=== PATIENT | female | born 1995 | race Caucasian/White ===

== ENCOUNTER 2018-11-25 08:55 | Emergency (ER) | payer OTHER ==
[~2018-11-25] VITALS: Ht 175.3 cm; Wt 121.1 kg
[2018-11-25] MEDS ORDERED: IV NORMAL SALINE 1000ML BAG 1,000 ML IV ONE (09:30)
[2018-11-25 10:11] LABS: INFLUENZA A PATIENT NEGATIVE (NEGATIVE); INFLUENZA B PATIENT NEGATIVE (NEGATIVE)
--- NOTE | 2018-11-25 10:19 | PHYS DOC ---
Past Medical History Past Medical History: Anxiety, Depression Past Surgical History: Other Additional Past Surgical Histo: WISDOM TEETH REMOVED Alcohol Use: Occasionally Drug Use: None Adult General Chief Complaint Chief Complaint: COUGH HPI HPI 23-year-old female presenting the emergency department today with cough fevers or throat and body aches. She reports yellow thick sputum production. This all started on Wednesday. She denies abdominal pain or vomiting. Location lungs. Review of systems is negative for neck stiffness headache vision changes numbness weakness tingling. Negative for vomiting. All other review of systems is negative unless otherwise noted in history of present illness. ED course: 23-year-old female presenting with cough congestion and body aches. On arrival she is mildly tachycardic and mildly tachypneic. She is afebrile here in our examination. On exam lungs are clear bilaterally and she is well- appearing with moist because membranes. X-ray obtained along with blood work. IV fluids given. Influenza testing sent. Influenza is negative. Chest x-ray showed possible infiltrate. On reexamination the patient's lung continued to be clear. She continues to be well-appearing. We will give the patient oral doxycycline to follow-up with her doctor in 2 days for pneumonia.The patient has been examined and was not found to have an emergency medical condition. The patient was then discharged home in stable condition to follow up with their primary care physician over the next 1-2 days. They were to return if their symptoms worsened or if they were concerned for any reason. They were also instructed to return to the emergency department if they were unable to get the recommended and appropriate follow-up. [id number] discharge instructions and return precautions were given. Patient's questions were answered to their satisfaction. Patient is comfortable with plan. Review of Systems Review of Systems SEE ABOVE. Current Medications Current Medications Current Medications Medications (Trade) Dose Ordered Sig/Lakshmi Start Time Stop Time Status Last Admin Dose Admin Sodium Chloride 1,000 ml @ 1,000 mls/hr 1X ONCE 11/25/18 09:30 11/25/18 10:29 DC 11/25/18 09:56 1,000 MLS/HR Allergies Allergies Allergies Coded Allergies Type Severity Reaction Last Updated Verified No Known Drug Allergies 11/25/18 No Physical Exam Physical Exam SEE ABOVE Constitutional: Well developed, well nourished, no acute distress, non-toxic appearance. [] HENT: Normocephalic, atraumatic, bilateral external ears normal, oropharynx moist, no oral exudates, nose normal. [] Eyes: PERRLA, EOMI, conjunctiva normal, no discharge. [] Neck: Normal range of motion, no tenderness, supple, no stridor. [] Cardiovascular:Heart rate regular rhythm, no murmur [] Lungs & Thorax: Bilateral breath sounds clear to auscultation [] Abdomen: Bowel sounds normal, soft, no tenderness, no masses, no pulsatile masses. [] Skin: Warm, dry, no erythema, no rash. [] Back: No tenderness, no CVA tenderness. [] Extremities: No tenderness, no cyanosis, no clubbing, ROM intact, no edema. [] Neurologic: Alert and oriented X 3, normal motor function, normal sensory function, no focal deficits noted. [] Psychologic: Affect normal, judgement normal, mood normal. [] Current Patient Data Vital Signs Vital Signs Date Time Temp Pulse Resp B/P (MAP) Pulse Ox O2 Delivery O2 Flow Rate FiO2 11/25/18 09:17 99.1 115 22 162/91 (114) 99 Room Air 99.1 Lab Values Laboratory Tests Test 11/25/18 09:27 11/25/18 09:58 11/25/18 11:30 Influenza Type A Antigen Negative (NEGATIVE) Influenza Type B Antigen Negative (NEGATIVE) White Blood Count 6.4 x10^3/uL (4.0-11.0) Red Blood Count 4.48 x10^6/uL (3.50-5.40) Hemoglobin 15.0 g/dL (12.0-15.5) Hematocrit 44.9 % (36.0-47.0) Mean Corpuscular Volume 100 fL (79-100) Mean Corpuscular Hemoglobin 34 pg (25-35) Mean Corpuscular Hemoglobin Concent 34 g/dL (31-37) Red Cell Distribution Width 13.0 % (11.5-14.5) Platelet Count 302 x10^3/uL (140-400) Neutrophils (%) (Auto) 65 % (31-73) Lymphocytes (%) (Auto) 26 % (24-48) Monocytes (%) (Auto) 8 % (0-9) Eosinophils (%) (Auto) 1 % (0-3) Basophils (%) (Auto) 0 % (0-3) Neutrophils # (Auto) 4.2 x10^3uL (1.8-7.7) Lymphocytes # (Auto) 1.7 x10^3/uL (1.0-4.8) Monocytes # (Auto) 0.5 x10^3/uL (0.0-1.1) Eosinophils # (Auto) 0.0 x10^3/uL (0.0-0.7) Basophils # (Auto) 0.0 x10^3/uL (0.0-0.2) Sodium Level 140 mmol/L (136-145) Potassium Level 4.1 mmol/L (3.5-5.1) Chloride Level 101 mmol/L (98-107) Carbon Dioxide Level 28 mmol/L (21-32) Anion Gap 11 (6-14) Blood Urea Nitrogen 9 mg/dL (7-20) Creatinine 0.9 mg/dL (0.6-1.0) Estimated GFR (Cockcroft-Gault) 79.0 BUN/Creatinine Ratio 10 (6-20) Glucose Level 88 mg/dL (70-99) Calcium Level 9.1 mg/dL (8.5-10.1) Total Bilirubin 0.2 mg/dL (0.2-1.0) Aspartate Amino Transferase (AST) 20 U/L (15-37) Alanine Aminotransferase (ALT) 28 U/L (14-59) Alkaline Phosphatase 77 U/L (46-116) Total Protein 7.9 g/dL (6.4-8.2) Albumin 4.0 g/dL (3.4-5.0) Albumin/Globulin Ratio 1.0 (1.0-1.7) Serum Test, Qualitative Negative (NEG) Urine Collection Type Unknown Urine Color Yellow Urine Clarity Clear Urine pH 7.0 Urine Specific [place] 1.010 Urine Protein Negative mg/dL (NEG-TRACE) Urine Glucose (UA) Negative mg/dL (NEG) Urine Ketones (Stick) Negative mg/dL (NEG) Urine Blood Negative (NEG) Urine Nitrite Negative (NEG) Urine Bilirubin Negative (NEG) Urine Urobilinogen Dipstick 0.2 mg/dL (0.2 mg/dL) Urine Leukocyte Esterase Small (NEG) Urine RBC 0 /HPF (0-2) Urine WBC 1-4 /HPF (0-4) Urine Squamous Epithelial Cells Few /LPF Urine Bacteria 0 /HPF (0-FEW) Laboratory Tests 11/25/18 09:58 Laboratory Tests 11/25/18 09:58 EKG EKG [] Radiology/Procedures Radiology/Procedures [] Course & Med Decision Making Course & Med Decision Making Pertinent Labs and Imaging studies reviewed. (See chart for details) [] Dragon Disclaimer Dragon Disclaimer This electronic medical record was generated, in whole or in part, using a voice recognition dictation system. Departure Departure Impression: Primary Impression: Cough Additional Impression: Pneumonia Referrals: ALEC BRANDT MD Patient Instructions: Cough, Adult Additional Instructions: Thank you for allowing us to participate in your care today. Return to the emergency department you have any new or worsening symptoms, or if you are concerned for any reason. Return to emergency department if you have any new or concerning symptoms including but not limited to fever, chills, nausea, vomiting, intractable pain, any new rashes, chest pain, shortness of air , uncontrolled bleeding, difficulty breathing, and/or vision loss. Follow up with your primary care physician within 1-2 days. Call your Primary Doctor tomorrow and inform them of your visit today. If you do not have a primary care provider we are happy to provide you with a list of our primary care providers contact information. This condition should be evaluated by your primary care physician and any recommended consulting services for continued management within 2 days after discharge. If at any time, you are having difficulty getting into your primary care doctor or a specialist, return to the emergency department. Scripts Doxycycline Hyclate (DOXYCYCLINE HYCLATE) 100 Mg Capsule 1 CAP PO BID, #14 CAP Prov: ALEJANDRA BYRD MD 11/25/18 Problem Qualifiers ALEJANDRA BYRD MD Nov 25, 2018 10:18
[2018-11-25 10:23] LABS: CALCIUM 9.1 mg/dL (8.5-10.1); CREATININE 0.9 mg/dL (0.6-1.0); POTASSIUM 4.1 mmol/L (3.5-5.1)
[2018-11-25 10:29] LABS: BASO % 0 % (0-3); EOS % 1 % (0-3); HEMATOCRIT 44.9 % (36.0-47.0); LYMPH # 1.7 x10^3/uL (1.0-4.8); LYMPH % 26 % (24-48); MEAN CORPUSCULAR HEMOGLOBIN 34 pg (25-35); MEAN CORPUSCULAR HGB CONC 34 g/dL (31-37); MEAN CORPUSCULAR VOLUME 100 fL (79-100); MONO # 0.5 x10^3/uL (0.0-1.1); MONO % 8 % (0-9); NEUT # 4.2 x10^3uL (1.8-7.7); NEUT % 65 % (31-73); PLATELET COUNT 302 x10^3/uL (140-400); PREG TEST PT QUAL NEGATIVE (NEG); RED BLOOD COUNT 4.48 x10^6/uL (3.50-5.40); TOTAL BILIRUBIN 0.2 mg/dL (0.2-1.0); TOTAL PROTEIN 7.9 g/dL (6.4-8.2); WHITE BLOOD COUNT 6.4 x10^3/uL (4.0-11.0)
--- NOTE | 2018-11-25 10:57 | RAD ---
Chest, PA and Lateral: Technique: PA and lateral views of the chest were obtained. History: Cough, congestion. Comparison: None. Findings: The heart and pulmonary vasculature appear within normal limits. Minimal bibasilar lung atelectasis or infiltrates... The pleural margins are clear. Impression: Minimal bibasilar lung atelectasis or infiltrates. Electronically signed by: Robert Rojas MD (11/25/2018 10:54 AM) [place] [id number]
[2018-11-25 11:37] LABS: BILIRUBIN,URINE NEGATIVE (NEG); CLARITY,URINE CLEAR; COLOR,URINE YELLOW; NITRITE,URINE NEGATIVE (NEG); PROTEIN,URINE NEGATIVE (NEG-TRACE); UROBILINOGEN,URINE 0.2 mg/dL (0.2 mg/dL)
[2018-11-25 11:58] LABS: BACTERIA,URINE 0 /HPF (0-FEW); RBC,URINE 0 /HPF (0-2); SQUAMOUS EPITHELIAL CELL,UR FEW /LPF
[2018-11-25] MEDS ORDERED: DOXY100C2 PO (12:13)
[2018-11-25 12:28] VITALS: BP 102/56
== END 2018-11-25 12:45 | disposition home or self-care (01) ==
LOC: ER 10:35
DX: J18.9 Pneumonia, unspecified organism (principal); R00.0 Tachycardia, unspecified; F32.9 Major depressive disorder, single episode, unspecified; F41.9 Anxiety disorder, unspecified
CPT/HCPCS: 36415; 71046; 80053; 81001; 84703; 85025; 87086; 87804; 99284; J7030

== ENCOUNTER → 2019-07-26 | Outpatient (CLI) | payer OTHER ==
[~2019-07-26] MED LIST: DOXY100C2 PO
[2019-07-26 11:16] LABS: BASO % 0 % (0-3); BILIRUBIN,URINE NEGATIVE (NEG); CLARITY,URINE CLEAR; COLOR,URINE YELLOW; EOS % 1 % (0-3); HEMATOCRIT 41.3 % (36.0-47.0); HEMOGLOBIN 14.4 g/dL (12.0-15.5); LYMPH # 2.5 x10^3/uL (1.0-4.8); LYMPH % 35 % (24-48); MEAN CORPUSCULAR HEMOGLOBIN 34 pg (25-35); MEAN CORPUSCULAR HGB CONC 35 g/dL (31-37); MEAN CORPUSCULAR VOLUME 98 fL (79-100); MONO # 0.5 x10^3/uL (0.0-1.1); MONO % 7 % (0-9); NEUT # 4.1 x10^3/uL (1.8-7.7); NEUT % 57 % (31-73); NITRITE,URINE NEGATIVE (NEG); PH,URINE 7.5; PLATELET COUNT 382 x10^3/uL (140-400); PROTEIN,URINE NEGATIVE (NEG-TRACE); RED BLOOD COUNT 4.21 x10^6/uL (3.50-5.40); RED CELL DISTRIBUTION WIDTH 12.2 % (11.5-14.5); WHITE BLOOD COUNT 7.1 x10^3/uL (4.0-11.0)
[2019-07-26 11:29] LABS: ALBUMIN/GLOBULIN RATIO 1.1 (1.0-1.7); CALCIUM 9.5 mg/dL (8.5-10.1); CREATININE 0.9 mg/dL (0.6-1.0); GFR 78.3; POTASSIUM 4.2 mmol/L (3.5-5.1); TOTAL BILIRUBIN 0.2 mg/dL (0.2-1.0); TOTAL PROTEIN 7.6 g/dL (6.4-8.2)
[2019-07-26 11:30] LABS: BACTERIA,URINE 0 /HPF (0-FEW); RBC,URINE RARE /HPF (0-2); SQUAMOUS EPITHELIAL CELL,UR OCC /LPF; WBC,URINE RARE /HPF (0-4)
== END | disposition home or self-care (01) ==
LOC: LAB 10:47
PROVIDERS: ATTEND Family Medicine
DX: R10.13 Epigastric pain (principal); R10.2 Pelvic and perineal pain; R53.83 Other fatigue; R30.0 Dysuria
CPT/HCPCS: 36415; 80053; 81001; 83690; 84443; 85025

== ENCOUNTER → 2019-08-02 | Outpatient (CLI) | payer OTHER ==
[~2019-08-02] MED LIST changes: +IOHEXOL 240 MG/ML 50ML VIAL. PO ONE; +IOHEXOL 300 MG/ML 100ML VIAL. IV ONE
--- NOTE | 2019-08-02 10:46 | RAD ---
CT of the abdomen and pelvis with contrast 08/02/2019 10:40 AM Indication: Epigastric pain. Pelvic pain. Comparison study: None available Technique: Multidetector CT imaging of the abdomen and pelvis was performed following the administration of IV contrast. Findings: The partially visualized lung bases demonstrate no acute abnormality. The liver, gallbladder, spleen, bilateral adrenal glands, and pancreas, are grossly unremarkable. There is a tiny hypodense lesion noted superior left kidney, likely a small cyst but too small to adequately characterize by CT. Kidneys are otherwise unremarkable. There is no bowel obstruction. No evidence of acute inflammatory change involving visualized bowel is identified. Appendix is visualized and unremarkable in appearance. Bladder is grossly unremarkable. No free fluid or free air is seen in the abdomen or pelvis. No acute osseous changes are identified. Impression: No evidence of acute intra-abdominal abnormality is identified. CT DOSING PQRS STATEMENT: One or more of the following individualized dose reduction techniques were utilized for this examination: 1. Automated exposure control 2. Adjustment of the mA and/or kV according to patient size 3. Use of iterative reconstruction technique Electronically signed by: Bert Humphrey MD (08/02/2019 10:43 AM) [id number]
== END | disposition home or self-care (01) ==
LOC: CT 09:16
PROVIDERS: ATTEND Family Medicine
DX: N28.89 Other specified disorders of kidney and ureter (principal)
CPT/HCPCS: 74177; Q9966; Q9967

== ENCOUNTER → 2019-09-04 | Outpatient (CLI) | payer OTHER ==
[~2019-09-04] VITALS: Ht 177.8 cm; Wt 120.2 kg
[~2019-09-04] MED LIST changes: -IOHEXOL 240 MG/ML 50ML VIAL. PO ONE; -IOHEXOL 300 MG/ML 100ML VIAL. IV ONE; +SINCALIDE 2.4 MCG in IV NORMAL SALINE 50ML 30 ML IV ONE
--- NOTE | 2019-09-04 11:35 | RAD ---
STUDY: Realtime grayscale and color Doppler ultrasonography of the right upper quadrant INDICATION: Right upper quadrant pain. Nausea. COMPARISON: Correlation is made to the CT abdomen/pelvis from 08/02/2019. Findings: Single mobile gallstone identified. Normal gallbladder wall thickness. No sonographic Beckford's sign was observed by the marine electronics technician. Normal caliber of the common bile duct at 0.3 cm. Normal hepatic echotexture and size. The main portal vein is patent with hepatopedal flow. The partially visualized IVC is unremarkable. Normal size of the right kidney 11 cm. Maintained cortical thickness and echogenicity. No hydronephrosis. The visualized pancreas is unremarkable. Impression: 1. Single mobile gallstone without sonographic findings of acute cholecystitis. 2. Unremarkable liver, right kidney and visualized pancreas. Electronically signed by: FATOU DAVIS MD (09/04/2019 11:33 AM) [facility]
--- NOTE | 2019-09-04 14:13 | RAD ---
EXAM: Nuclear hepatobiliary scan. HISTORY: Pain. TECHNIQUE: Following intravenous administration of 5.0 mCi Tc 99m Choletec, anterior images of the abdomen were obtained at five minute intervals through one hour. Subsequently, 2.4 mcg CCK was administered and additional images to assess gallbladder ejection fraction were obtained. FINDINGS: There is prompt radiotracer uptake by the liver. No focal defect is seen. There is normal excretion into the biliary tree. The gallbladder is visualized within 35 minutes and there is free flow into the duodenum. The gallbladder ejection fraction is 2 percent. IMPRESSION: Severely decreased gallbladder ejection fraction of 2 percent. Electronically signed by: Alem Harper MD (09/04/2019 2:10 PM) [id number]
== END | disposition home or self-care (01) ==
LOC: US 09:55
PROVIDERS: ATTEND Internal Medicine Gastroenterology
DX: K80.20 Calculus of gallbladder without cholecystitis without obstruction (principal)
CPT/HCPCS: 76705; 78227; A9537; J2805

== ENCOUNTER → 2019-09-22 | Day surgery (SDC) | payer OTHER ==
[~2019-09-22] MED LIST changes: +BUPR150T15 PO; +IV RINGERS,LACTATED 1000ML 1,000 ML IV SCH; +LIDOCAINE 2% PF 5 ML VIAL. ONE; +PROPOFOL 20 ML IV ONE; +SERT100T PO; -SINCALIDE 2.4 MCG in IV NORMAL SALINE 50ML 30 ML IV ONE; +TOPI50TA38 PO; +TRAZ-118 PO
[2019-09-22 08:09] VITALS: BP 127/70
== END ==
LOC: ENDOS 06:34
PROVIDERS: ATTEND Internal Medicine Gastroenterology
DX: R10.13 Epigastric pain (principal); K29.50 Unspecified chronic gastritis without bleeding; F41.9 Anxiety disorder, unspecified; F32.9 Major depressive disorder, single episode, unspecified; K58.9 Irritable bowel syndrome, unspecified; F15.90 Other stimulant use, unspecified, uncomplicated; Z87.891 Personal history of nicotine dependence; Z72.89 Other problems related to lifestyle
CPT/HCPCS: 43235; 81025; J2001; J2704

== ENCOUNTER → 2019-09-29 | Outpatient (CLI) | payer OTHER ==
[2019-09-22 08:09] VITALS: BP 127/70
[~2019-09-29] MED LIST changes: -IV RINGERS,LACTATED 1000ML 1,000 ML IV SCH; -LIDOCAINE 2% PF 5 ML VIAL. ONE; -PROPOFOL 20 ML IV ONE
[2019-10-03 04:08] LABS: GC PROBE Negative (Negative)
== END | disposition home or self-care (01) ==
LOC: LAB 15:05
PROVIDERS: ATTEND Family Medicine
DX: Z01.419 Encounter for gynecological examination (general) (routine) without abnormal findings (principal); Z11.3 Encounter for screening for infections with a predominantly sexual mode of transmission
CPT/HCPCS: 87480; 87491; 87510; 87591; 87660

== ENCOUNTER → 2019-11-07 | Outpatient (CLI) | payer OTHER ==
[2019-09-22 08:09] VITALS: BP 127/70
[2019-11-07 10:58] LABS: BASO # 0.1 x10^3/uL (0.0-0.2); BASO % 1 % (0-3); EOS % 0 % (0-3); HEMATOCRIT 41.7 % (36.0-47.0); HEMOGLOBIN 14.1 g/dL (12.0-15.5); LYMPH # 2.6 x10^3/uL (1.0-4.8); LYMPH % 29 % (24-48); MEAN CORPUSCULAR HEMOGLOBIN 34 pg (25-35); MEAN CORPUSCULAR HGB CONC 34 g/dL (31-37); MEAN CORPUSCULAR VOLUME 99 fL (79-100); MONO # 0.6 x10^3/uL (0.0-1.1); MONO % 7 % (0-9); NEUT # 5.7 x10^3/uL (1.8-7.7); NEUT % 64 % (31-73); PLATELET COUNT 404 x10^3/uL (140-400); RED CELL DISTRIBUTION WIDTH 12.9 % (11.5-14.5)
[2019-11-07 11:16] LABS: CALCIUM 9.1 mg/dL (8.5-10.1); GFR 69.3; POTASSIUM 3.8 mmol/L (3.5-5.1)
== END | disposition home or self-care (01) ==
LOC: LAB 10:35
PROVIDERS: ATTEND Family Medicine
DX: R53.83 Other fatigue (principal); M79.10 Myalgia, unspecified site
CPT/HCPCS: 36415; 80048; 82550; 84443; 85025; 85651

== ENCOUNTER → 2019-11-17 | Outpatient (CLI) | payer OTHER ==
[2019-09-22 08:09] VITALS: BP 127/70
[~2019-11-17] MED LIST changes: +BUPR300T3 PO; +OMEP20TA63 PO; +OXYC-325 PO; +SERT50TA PO
[2019-11-17 11:19] LABS: ALBUMIN 3.7 g/dL (3.4-5.0); TOTAL BILIRUBIN 0.3 mg/dL (0.2-1.0)
== END | disposition home or self-care (01) ==
LOC: SURGPAT 09:54
PROVIDERS: ATTEND Surgery
DX: Z01.818 Encounter for other preprocedural examination (principal); K80.20 Calculus of gallbladder without cholecystitis without obstruction
CPT/HCPCS: 36415; 82040; 82247

== ENCOUNTER 2019-11-20 06:38 | Day surgery (SDC) | payer OTHER ==
[~2019-11-20] VITALS: Ht 171.4 cm; Wt 122.0 kg
[~2019-11-20 06:38] MED LIST changes: -OXYC-325 PO; +ceFAZolin SODIUM 3 GM in IV DEXTROSE 5% 100ML 100 ML IV PRN
[2019-11-20] MEDS ORDERED: PROCHLORPERAZINE 10 MG/2 ML VIAL. IV PRN (07:00)
[2019-11-20] MEDS ORDERED: MORPHINE SULFATE 2 MG/ML VIAL. IV PRN (07:00)
[2019-11-20] MEDS ORDERED: fentaNYL PF VIAL 100 MCG/2 ML VIAL IV PRN ×2 (07:00)
[2019-11-20] MEDS ORDERED: IV RINGERS,LACTATED 1000ML 1,000 ML IV SCH (07:00)
[2019-11-20] MEDS ORDERED: ONDANSETRON PF 4 MG/2 ML VIAL. IV PRN (07:00)
[2019-11-20] MEDS ORDERED: HYDROmorphone 2 MG/ML VIAL IV PRN (07:00)
[2019-11-20] MEDS ORDERED: LIDOCAINE 1% PF 2 ML VIAL. ID PRN (07:00)
[2019-11-20] MEDS ORDERED: GLUCAGON,HUMAN RECOMBINANT 1 MG/ML VIAL. ONE (07:29)
[2019-11-20] MEDS ORDERED: IOHEXOL 300 MG/ML 50 ML VIAL. ONE (07:29)
[2019-11-20] MEDS ORDERED: SURGICEL HEMOSTAT 4X8 EACH. ONE (07:29)
[2019-11-20] MEDS ORDERED: BUPIVACAINE-EPI 0.5%-1:200000 MPF 30 ML VIAL. ONE (07:29)
[2019-11-20] MEDS ORDERED: fentaNYL PF VIAL 250 MCG/5 ML VIAL ONE (07:32)
[2019-11-20] MEDS ORDERED: ROCURONIUM 50 MG/5 ML VIAL. ONE ×2 (07:32→08:25)
[2019-11-20] MEDS ORDERED: MIDAZOLAM HCL/PF 2 MG/2 ML VIAL. ONE (07:32)
[2019-11-20] MEDS ORDERED: LIDOCAINE 2% PF 5 ML VIAL. ONE (07:33)
[2019-11-20] MEDS ORDERED: ONDANSETRON PF 4 MG/2 ML VIAL. ONE (07:33)
[2019-11-20] MEDS ORDERED: DEXAMETHASONE SOD PHOS 4 MG/ML VIAL ONE (07:33)
[2019-11-20] MEDS ORDERED: PROPOFOL 20 ML IV ONE (07:33)
[2019-11-20] MEDS ORDERED: ROCURONIUM 100 MG/10 ML VIAL. ONE (08:26)
[2019-11-20] MEDS ORDERED: PHENYLEPHRINE in 0.9% NACL PF 1 MG/10 ML SYRINGE. IV ONE (09:04)
[2019-11-20] MEDS ORDERED: GLYCOPYRROLATE 1 MG/5 ML VIAL. ONE (09:04)
[2019-11-20] MEDS ORDERED: NEOSTIGMINE METHYLSULFATE 5 MG/5 ML SYRINGE. ONE (09:05)
[2019-11-20] MEDS ORDERED: SEVOFLURANE 61 TO 120 MINUTES. IH ONE (09:08)
[2019-11-20] MEDS ORDERED: OXYC-325 PO (09:27)
--- NOTE | 2019-11-20 09:30 | DISCH ---
DISCHARGE INSTRUCTIONS Condition on Discharge Condition on Discharge: Stable Activity After Discharge Activity Instructions for Disc: Activity as tolerated, Avoid exertion Driving Instructions after Dis: Do not drive (3-4 days) Diet after Discharge Diet after Discharge: Regular Wound Incision Care Wound/Incision Care: Ice to area for comfort Other wound/incision instructi: shasha shower Wednesday Follow-Up Follow up with: Jared 11/24 SPENCER LLOYD MD Nov 20, 2019 09:30
--- NOTE | 2019-11-20 09:40 | PDOC ---
BRIEF OPERATIVE NOTE Date: Nov 20, 2019 Pre-Op Diagnosis symptomatic cholelithiasis Post-Op Diagnosis same Procedure Performed l/s cholecystectomy Surgeon Jared Pan Cleaner Carlton SUNG Anesthesia Type: General Blood Loss 10cc IV Fluid 600cc Specimens Obtained GB Findings supple GB Complications none Operative Note Wk # [id number] SPENCER LLOYD MD Nov 20, 2019 09:40
[2019-11-20] MEDS ORDERED: oxyCODONE/APAP 5/325 1 TAB TABLET PO ONE (09:45)
[2019-11-20] MEDS ORDERED: PROCHLORPERAZINE 10 MG/2 ML VIAL. ONE (09:48)
--- NOTE | 2019-11-20 09:49 | OP ---
DATE OF SURGERY: 11/20/2019 PREOPERATIVE DIAGNOSIS: Symptomatic cholelithiasis. POSTOPERATIVE DIAGNOSIS: Symptomatic cholelithiasis. PROCEDURE: Laparoscopic cholecystectomy. SURGEON: Sylvain Lloyd MD BUILD MASTER: ANA LILIA Hyman ANESTHESIA: General endotracheal. ESTIMATED BLOOD LOSS: 10 mL. INTRAVENOUS FLUIDS: 600 mL. INDICATIONS: The patient is a 24-year-old with postprandial nausea and pain. Ultrasound shows a stone. She is brought for cholecystectomy. OPERATIVE FINDINGS: The gallbladder was supple with some omental adhesions along the inferior surface. Visual inspection of the remainder of the abdomen failed to reveal obvious abnormalities. DESCRIPTION OF PROCEDURE: The patient was brought to the operating suite, given a general endotracheal anesthetic, and the abdomen was prepped and draped in usual sterile fashion. A supraumbilical incision was infiltrated with local anesthetic, incised, and a 5 mm x 150 mm Visiport was used to gain access into the abdominal cavity, taking care to avoid injury to abdominal contents. Pneumoperitoneum established. Camera inserted and inspection carried out with results as noted above. With the table in reverse Trendelenburg rolled to the left, the epigastric, midclavicular, and lateral ports were placed under direct vision. The gallbladder was retracted superolaterally and omental adhesions taken down from the inferior surface to expose the cystic artery and cystic duct. The duct was clipped on the gallbladder side. However, attempted cholangiograms were unsuccessful due to the small caliber of the duct. As such, it was clipped x 3 and divided, taking care to avoid injury or compromise to the common duct. Cystic artery was clipped and divided and gallbladder freed from the bed with cautery dissection and placed in an EndoCatch bag. Table returned to level. A [address] drain brought through the epigastric port out the lateral port, sewn to the skin with a silk stitch and left in the subhepatic space for postoperative drainage. Good hemostasis was present in the fossa. One area of possible bile leak from a duct of L[place]chka was controlled with FloSeal. Gallbladder delivered through the epigastric incision which was then closed with 0 Vicryl suture and intra-abdominal pressure decreased to 6 cm of water. No bleeding from the epigastric closure, midclavicular port site after its removal, or the drain site. Abdomen decompressed, camera removed, and no bleeding seen. Skin incisions closed with subcuticular 4-0 Monocryl. Steri-Strips and sterile dressings applied. The patient was awakened from her anesthetic and taken to the recovery room in satisfactory condition. SYLVAIN LLOYD MD DR: MATILDE/emigdio JOB#: [id number] / [id number]
[2019-11-20 10:20] VITALS: BP 122/49
--- NOTE | 2019-11-21 17:06 | PATHOLOGY ---
[facility] Accession Number: [id number] . 01 Material submitted: . gallbladder - GALLBLADDER AND CONTENTS . 01 Clinical history: . cholelithiasis . 02 Diagnosis: Gallbladder, cholecystectomy: - Cholelithiasis. - Cholesterolosis. - Chronic cholecystitis. 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 . [facility] 11/21/2019) [facility] 11/21/2019 1536 Local . 02 Comment: There is no evidence of malignancy. . ([facility]mm; 11/21/2019) . 02 Electronically signed: . Jovanny Ortiz MD, Pathologist NPI- [id number] . 01 Gross description: . The specimen is received in formalin labeled "[place], [place], gallbladder and contents" and consists of an intact pink-yi to green smooth shiny gallbladder measuring 9.3 x 2.5 x 2.0 cm. The margin is inked black. Opening reveals a lumen filled with green bile and a single smooth oval green calculus measuring 1.8 cm. The mucosa is green with extensive yellow highlights and an average wall thickness of 0.1 cm. No masses are identified. Adjacent the gallbladder neck are 2 lymph node measuring 0.6 cm and 0.8 cm. Prefabricator sections are submitted in A1-A2 with the bisected lymph node (one inked blue) in A2. (SDY; 11/20/2019) SYU/SYU 11/20/2019 1724 Local . 02 Pathologist provided ICD-10: K80.10, K82.4 . 02 CPT . 149173 Specimen Comment: A courtesy copy of this report has been sent to [phone], [phone] Specimen Comment: [id number] Specimen Comment: Report sent to / DR DANG Performed at: [address] [facility], [place] [id number] MD David Wilde MD Phone: [phone] Performed at: [facility] [address] [place], [place] [id number] MD Jovanny Ortiz MD Phone: [phone]
== END 2019-11-20 11:20 | disposition home or self-care (01) ==
LOC: SURG 06:38
PROVIDERS: ATTEND Surgery
DX: K80.10 Calculus of gallbladder with chronic cholecystitis without obstruction (principal); G43.909 Migraine, unspecified, not intractable, without status migrainosus; F41.9 Anxiety disorder, unspecified; Z87.01 Personal history of pneumonia (recurrent); Z87.891 Personal history of nicotine dependence; Z98.890 Other specified postprocedural states
CPT/HCPCS: 47562; 81025; A7015; J0780; J1100; J2001; J2250; J2405; J2704; J2710; J3010; J3490; J7030; Q9967; J1610; J2370

== ENCOUNTER 2019-11-30 11:44 | Emergency (ER) | payer OTHER ==
[~2019-11-30] VITALS: Ht 177.8 cm; Wt 120.5 kg
[~2019-11-30 11:44] MED LIST changes: +OXYC-325 PO; -ceFAZolin SODIUM 3 GM in IV DEXTROSE 5% 100ML 100 ML IV PRN
[2019-11-30] MEDS ORDERED: IV NORMAL SALINE 1000ML BAG 1,000 ML IV ONE (12:15)
[2019-11-30] MEDS ORDERED: FAMOTIDINE 20 MG/2 ML VIAL IVP ONE (12:15)
[2019-11-30] MEDS ORDERED: DICYCLOMINE HCL 10 MG CAPSULE PO ONE (12:15)
[2019-11-30] MEDS ORDERED: ONDANSETRON PF 4 MG/2 ML VIAL. IVP ONE (12:15)
[2019-11-30] MEDS ORDERED: fentaNYL PF VIAL 100 MCG/2 ML VIAL IVP ONE (12:15)
[2019-11-30 12:30] LABS: CALCIUM 9.5 mg/dL (8.5-10.1); CREATININE 1.1 mg/dL (0.6-1.0); GFR 62.1; POTASSIUM 3.7 mmol/L (3.5-5.1)
[2019-11-30] MEDS ORDERED: IOHEXOL 300 MG/ML 100ML VIAL. IV ONE (12:30)
[2019-11-30 12:35] LABS: BASO % 0 % (0-3); EOS % 0 % (0-3); HEMATOCRIT 45.2 % (36.0-47.0); HEMOGLOBIN 15.7 g/dL (12.0-15.5); LYMPH # 0.7 x10^3/uL (1.0-4.8); LYMPH % 6 % (24-48); MEAN CORPUSCULAR HEMOGLOBIN 34 pg (25-35); MEAN CORPUSCULAR HGB CONC 35 g/dL (31-37); MEAN CORPUSCULAR VOLUME 98 fL (79-100); MONO # 0.4 x10^3/uL (0.0-1.1); MONO % 4 % (0-9); NEUT # 10.3 x10^3/uL (1.8-7.7); NEUT % 90 % (31-73); PLATELET COUNT 395 x10^3/uL (140-400); RED BLOOD COUNT 4.63 x10^6/uL (3.50-5.40); RED CELL DISTRIBUTION WIDTH 12.7 % (11.5-14.5); WHITE BLOOD COUNT 11.4 x10^3/uL (4.0-11.0)
[2019-11-30 12:36] LABS: ALBUMIN 4.3 g/dL (3.4-5.0); ALBUMIN/GLOBULIN RATIO 1.2 (1.0-1.7); TOTAL BILIRUBIN 0.7 mg/dL (0.2-1.0); TOTAL PROTEIN 7.9 g/dL (6.4-8.2)
[2019-11-30 12:40] LABS: BARBITURATES NEG (NEG); BENZODIAZEPINES NEG (NEG); CANNABINOIDS NEG (NEG); COCAINE NEG (NEG); METHADONE NEG (NEG); OPIATES NEG (NEG); PHENCYCLIDINE NEG (NEG)
[2019-11-30 12:42] LABS: AMPHETAMINE/METHAMPHETAMINE NEG (NEG)
[2019-11-30 12:50] LABS: BILIRUBIN,URINE NEGATIVE (NEG); CLARITY,URINE CLEAR; COLOR,URINE YELLOW; NITRITE,URINE NEGATIVE (NEG); PH,URINE 8.5; PROTEIN,URINE 30 mg/dL (NEG-TRACE)
[2019-11-30 12:59] LABS: U PREG PATIENT NEGATIVE (NEG)
[2019-11-30 13:18] LABS: SQUAMOUS EPITHELIAL CELL,UR MANY /LPF
[2019-11-30 13:19] LABS: BACTERIA,URINE FEW /HPF (0-FEW); RBC,URINE >40 /HPF (0-2)
--- NOTE | 2019-11-30 13:45 | RAD ---
CT ABD PELV W/ IV CONTRST ONLY Indication: Abdomen pain. Nausea and vomiting. Cholecystectomy November 20, 2019. Exposure: One or more of the following individualized dose reduction techniques were utilized for this examination: 1. Automated exposure control 2. Adjustment of the mA and/or kV according to patient size 3. Use of iterative reconstruction technique. Technique: Intravenous contrast was given. No oral contrast per request. COMPARISON: 08/02/2019. FINDINGS: Lung bases are clear. Liver unremarkable. Spleen unremarkable. Pancreas unremarkable. No evidence of adrenal mass. Kidneys demonstrate symmetric enhancement without focal mass or hydronephrosis. Surgical clips in the gallbladder fossa. There is a small hypodense collection within the gallbladder fossa, corresponding with the location of the previously seen gallbladder. This collection is fairly well-defined measuring about 4.2 x 1.2 x 1.3 cm. Only minimal stranding within the adjacent fat. There is not much of a perceptible wall. This measures about 25 Hounsfield units, barely greater than simple fluid. The aorta is nonaneurysmal. No significant lymph node enlargement. Stomach is not distended. No significant small bowel distention. Mild fluid density throughout the colon, could correlate with diarrhea. No evidence of colonic wall thickening or acute colitis. Small hiatal hernia. No significant ascites. No evidence of pneumoperitoneum. The urinary bladder is not distended. Low-density in the right adnexa measuring up to 2.5 cm bladder one or more of ovarian cysts or follicles. This appears similar to the prior study. Vertebral body height and alignment are intact. Mild marginal spurring. No evidence of acute fracture. No aggressive bone destruction. Mild stranding within the deep subcutaneous fat along the right upper abdomen at the level of the inferior liver. This was not present on the prior study, and presumably related to surgery. IMPRESSION: Small fluid collection within the gallbladder fossa. Given the recent nature of surgery, the lack of much inflammatory type change and the lack of a perceptible wall, this may just represent some residual postoperative hemorrhage or seroma. This does not measure hemorrhagic density. Correlate for clinical signs of infection, however. Depending on concern, short-term follow-up scan in 7-10 days could be of benefit for further evaluation. Electronically signed by: Mark Anthony Chow MD (11/30/2019 1:41 PM) [id number]
[2019-11-30 14:18] LABS: % ATYL 5 % (0-0); % BANDS 16 % (0-9); % EOS 1 % (0-5); % LYMPHS 5 % (24-48); % MONOS 2 % (0-10); % SEGS 71 % (35-66); PLT ESTIMATE ADEQUATE (ADEQUATE)
--- NOTE | 2019-11-30 14:52 | PHYS DOC ---
Past Medical History Past Medical History: Anxiety, Depression Past Surgical History: Cholecystectomy, Other Additional Past Surgical Histo: WISDOM TEETH REMOVED Smoking Status: Current Every Day Smoker Alcohol Use: Occasionally Drug Use: None Adult General Chief Complaint Chief Complaint: ABDOMINAL PAIN HPI HPI Patient is a 24 year old female patient who presents to the ED today complaining of nausea, vomiting, diarrhea and right upper quadrant abdominal pain that began this morning. Patient rates the pain as moderate. Denies any exacerbating or relieving factors symptoms. She reports she had a laparoscopic cholecystectomy on November [address] Coleman. She reports she was in contact with her sister's family a couple days ago and the on have vomiting and diarrhea. Review of Systems Review of Systems Constitutional: Denies fever or chills [] Eyes: Denies change in visual acuity, redness, or eye pain [] HENT: Denies nasal congestion or sore throat [] Respiratory: Denies cough or shortness of breath [] Cardiovascular: No additional information not addressed in HPI [] GI: Reports abdominal pain, nausea vomiting diarrhea, denies any hematemesis or melena : Denies dysuria or hematuria [] Musculoskeletal: Denies back pain or joint pain [] Integument: Denies rash or skin lesions [] Neurologic: Denies headache, focal weakness or sensory changes [] All other systems were reviewed and found to be within normal limits, except as documented in this note. Current Medications Current Medications Current Medications Medications (Trade) Dose Ordered Sig/Lakshmi Start Time Stop Time Status Last Admin Dose Admin Dicyclomine HCl (Bentyl) 20 mg 1X ONCE 11/30/19 12:15 11/30/19 12:16 DC 11/30/19 12:25 20 MG Famotidine (Pepcid Vial) 20 mg 1X ONCE 11/30/19 12:15 11/30/19 12:16 DC 11/30/19 12:24 20 MG Fentanyl Citrate (Fentanyl 2ml Vial) 50 mcg 1X ONCE 11/30/19 12:15 11/30/19 12:16 DC 11/30/19 12:25 50 MCG Iohexol (Omnipaque 300 Mg/ml) 75 ml 1X ONCE 11/30/19 12:30 11/30/19 12:31 DC 11/30/19 13:09 75 ML Ondansetron HCl (Zofran) 4 mg 1X ONCE 11/30/19 12:15 11/30/19 12:16 DC 11/30/19 12:24 4 MG Prochlorperazine Edisylate (Compazine) 10 mg 1X ONCE 11/30/19 15:15 11/30/19 15:16 DC 11/30/19 15:14 10 MG Sodium Chloride 1,000 ml @ 1,000 mls/hr 1X ONCE 11/30/19 12:15 11/30/19 13:14 DC 11/30/19 12:25 1,000 MLS/HR Allergies Allergies Allergies Coded Allergies Type Severity Reaction Last Updated Verified No Known Drug Allergies 11/20/19 No Physical Exam Physical Exam Constitutional: Well developed, well nourished, no acute distress, non-toxic appearance. [] HENT: Normocephalic, atraumatic, bilateral external ears normal, oropharynx moist, no oral exudates, nose normal. [] Eyes: PERRLA, EOMI, conjunctiva normal, no discharge. [] Neck: Normal range of motion, no tenderness, supple, no stridor. [] Cardiovascular:Heart rate regular rhythm, no murmur [] Lungs & Thorax: Bilateral breath sounds clear to auscultation [] Abdomen: Laparoscopic surgical incisions consistent with cholecystectomy noted on the abdomen, incisions are well approximated, no signs of infection. Bowel sounds normal, soft, slight tenderness of the right upper quadrant, no right lower quadrant tenderness, no masses, no pulsatile masses. [] Skin: Warm, dry, no erythema, no rash. [] Back: No tenderness, no CVA tenderness. [] Extremities: No tenderness, no cyanosis, no clubbing, ROM intact, no edema. [] Neurologic: Alert and oriented X 3, normal motor function, normal sensory func tion, no focal deficits noted. [] Psychologic: Affect normal, judgement normal, mood normal. [] Current Patient Data Vital Signs Vital Signs Date Time Temp Pulse Resp B/P (MAP) Pulse Ox O2 Delivery O2 Flow Rate FiO2 11/30/19 14:25 115 117/56 (76) 99 Room Air 11/30/19 12:00 98.1 14 98.1 Lab Values Laboratory Tests Test 11/30/19 12:05 11/30/19 12:21 White Blood Count 11.4 x10^3/uL (4.0-11.0) H Red Blood Count 4.63 x10^6/uL (3.50-5.40) Hemoglobin 15.7 g/dL (12.0-15.5) H Hematocrit 45.2 % (36.0-47.0) Mean Corpuscular Volume 98 fL (79-100) Mean Corpuscular Hemoglobin 34 pg (25-35) Mean Corpuscular Hemoglobin Concent 35 g/dL (31-37) Red Cell Distribution Width 12.7 % (11.5-14.5) Platelet Count 395 x10^3/uL (140-400) Neutrophils (%) (Auto) 90 % (31-73) H Lymphocytes (%) (Auto) 6 % (24-48) L Monocytes (%) (Auto) 4 % (0-9) Eosinophils (%) (Auto) 0 % (0-3) Basophils (%) (Auto) 0 % (0-3) Neutrophils # (Auto) 10.3 x10^3/uL (1.8-7.7) H Lymphocytes # (Auto) 0.7 x10^3/uL (1.0-4.8) L Monocytes # (Auto) 0.4 x10^3/uL (0.0-1.1) Eosinophils # (Auto) 0.0 x10^3/uL (0.0-0.7) Basophils # (Auto) 0.0 x10^3/uL (0.0-0.2) Segmented Neutrophils % 71 % (35-66) H Band Neutrophils % 16 % (0-9) H Lymphocytes % 5 % (24-48) L Atypical Lymphocytes % (Manual) 5 % (0-0) H Monocytes % 2 % (0-10) Eosinophils % 1 % (0-5) Platelet Estimate Adequate (ADEQUATE) Sodium Level 137 mmol/L (136-145) Potassium Level 3.7 mmol/L (3.5-5.1) Chloride Level 102 mmol/L (98-107) Carbon Dioxide Level 21 mmol/L (21-32) Anion Gap 14 (6-14) Blood Urea Nitrogen 12 mg/dL (7-20) Creatinine 1.1 mg/dL (0.6-1.0) H Estimated GFR (Cockcroft-Gault) 62.1 BUN/Creatinine Ratio 11 (6-20) Glucose Level 103 mg/dL (70-99) H Calcium Level 9.5 mg/dL (8.5-10.1) Total Bilirubin 0.7 mg/dL (0.2-1.0) Aspartate Amino Transferase (AST) 17 U/L (15-37) Alanine Aminotransferase (ALT) 38 U/L (14-59) Alkaline Phosphatase 84 U/L (46-116) Total Protein 7.9 g/dL (6.4-8.2) Albumin 4.3 g/dL (3.4-5.0) Albumin/Globulin Ratio 1.2 (1.0-1.7) Lipase 118 U/L (73-393) Ethyl Alcohol Level < 10 mg/dL (0-10) Urine Collection Type Void Urine Color Yellow Urine Clarity Clear Urine pH 8.5 Urine Specific [place] 1.020 Urine Protein 30 mg/dL (NEG-TRACE) Urine Glucose (UA) Negative mg/dL (NEG) Urine Ketones (Stick) Trace mg/dL (NEG) Urine Blood Large (NEG) Urine Nitrite Negative (NEG) Urine Bilirubin Negative (NEG) Urine Urobilinogen Dipstick 1.0 mg/dL (0.2 mg/dL) Urine Leukocyte Esterase Small (NEG) Urine RBC >40 /HPF (0-2) Urine WBC 1-4 /HPF (0-4) Urine Squamous Epithelial Cells Many /LPF Urine Bacteria Few /HPF (0-FEW) Urine Test Negative (NEG) Urine Opiates Screen Neg (NEG) Urine Methadone Screen Neg (NEG) Urine Barbiturates Neg (NEG) Urine Phencyclidine Screen Neg (NEG) Urine Amphetamine/Methamphetamine Neg (NEG) Urine Benzodiazepines Screen Neg (NEG) Urine Cocaine Screen Neg (NEG) Urine Cannabinoids Screen Neg (NEG) Urine Ethyl Alcohol Neg (NEG) Laboratory Tests 11/30/19 12:05 Laboratory Tests 11/30/19 12:05 EKG EKG [] Radiology/Procedures Radiology/Procedures []PROCEDURE: CT ABD PELV W/ IV CONTRST ONLY CT ABD PELV W/ IV CONTRST ONLY Indication: Abdomen pain. Nausea and vomiting. Cholecystectomy November 20, 2019. Exposure: One or more of the following individualized dose reduction techniques were utilized for this examination: 1. Automated exposure control 2. Adjustment of the mA and/or kV according to patient size 3. Use of iterative reconstruction technique. Technique: Intravenous contrast was given. No oral contrast per request. COMPARISON: 08/02/2019. FINDINGS: Lung bases are clear. Liver unremarkable. Spleen unremarkable. Pancreas unremarkable. No evidence of adrenal mass. Kidneys demonstrate symmetric enhancement without focal mass or hydronephrosis. Surgical clips in the gallbladder fossa. There is a small hypodense collection within the gallbladder fossa, corresponding with the location of the previously seen gallbladder. This collection is fairly well-defined measuring about 4.2 x 1.2 x 1.3 cm. Only minimal stranding within the adjacent fat. There is not much of a perceptible wall. This measures about 25 Hounsfield units, barely greater than simple fluid. The aorta is nonaneurysmal. No significant lymph node enlargement. Stomach is not distended. No significant small bowel distention. Mild fluid density throughout the colon, could correlate with diarrhea. No evidence of colonic wall thickening or acute colitis. Small hiatal hernia. No significant ascites. No evidence of pneumoperitoneum. The urinary bladder is not distended. Low-density in the right adnexa measuring up to 2.5 cm bladder one or more of ovarian cysts or follicles. This appears similar to the prior study. Vertebral body height and alignment are intact. Mild marginal spurring. No evidence of acute fracture. No aggressive bone destruction. Mild stranding within the deep subcutaneous fat along the right upper abdomen at the level of the inferior liver. This was not present on the prior study, and presumably related to surgery. IMPRESSION: Small fluid collection within the gallbladder fossa. Given the recent nature of surgery, the lack of much inflammatory type change and the lack of a perceptible wall, this may just represent some residual postoperative hemorrhage or seroma. This does not measure hemorrhagic density. Correlate for clinical signs of infection, however. Depending on concern, short-term follow-up scan in 7-10 days could be of benefit for further evaluation. Electronically signed by: Mark Anthony Chow MD (11/30/2019 1:41 PM) [facility] DICTATED and SIGNED BY: MARK ANTHONY CHOW MD DATE: 11/30/19 1345 Course & Med Decision Making Course & Med Decision Making Pertinent Labs and Imaging studies reviewed. (See chart for details) This is a 24-year-old female patient presenting to the ED today with nausea vomiting and diarrhea that began this morning. Off not patient had a laparoscopic cholecystectomy done on November 20, 2019. She has been in contact with several family members nausea vomiting and diarrhea symptoms. CBC with a WBC of 11.7 and a left shift. CMP with nothing really, urine analysis is contaminated with his, CellCept dependent. CT of the abdomen and pelvic was noted fo-Small fluid collection within the gallbladder fossa with no inflmamatory changes possibly post op seroma or hemorrhage. CT results were discussed with Dr. Coleman. Patient was discharged home with Zofran, dicyclomine. Instructed to maintain good hand hygiene and follow-up with her doctor next week Dragon Disclaimer Dragon Disclaimer This electronic medical record was generated, in whole or in part, using a voice recognition dictation system. Departure Departure Impression: Primary Impression: Nausea, vomiting and diarrhea Additional Impression: Abdominal pain Disposition: 01 HOME, SELF-CARE Condition: STABLE Referrals: KEEGAN DANG MD (PCP) Follow-up with your doctor next week Patient Instructions: Diarrhea, Vita-bp-Lreq, Nausea and Vomiting, [id number] Additional Instructions: Please take Zofran for nausea or vomiting. Push fluids. Follow up with your doctor next week Scripts Dicyclomine Hcl (DICYCLOMINE HCL) 20 Mg Tablet 1 TAB PO TID, #30 TAB 1 Refill Prov: DAYANA HERNANDEZ APRN 11/30/19 Ondansetron (ONDANSETRON ODT) 4 Mg Tab.rapdis 1 TAB PO PRN Q6-8HRS, #20 TAB Prov: DAYANA HERNANDEZ APRN 11/30/19 Problem Qualifiers Additional Impression: Abdominal pain Abdominal location: right upper quadrant Qualified Codes: R10.11 - Right upper quadrant pain DAYANA HERNANDEZ APRN Nov 30, 2019 14:52
[2019-11-30] MEDS ORDERED: PROCHLORPERAZINE 10 MG/2 ML VIAL. IV ONE (15:15)
[2019-11-30 15:55] VITALS: BP 120/54
[2019-11-30] MEDS ORDERED: DICY20TA3 PO (15:57)
[2019-11-30] MEDS ORDERED: ONDA4TAB12 PO (15:57)
== END 2019-11-30 16:03 | disposition home or self-care (01) ==
LOC: ER 11:44
DX: R11.2 Nausea with vomiting, unspecified (principal); R19.7 Diarrhea, unspecified; R10.11 Right upper quadrant pain; F41.9 Anxiety disorder, unspecified; F32.9 Major depressive disorder, single episode, unspecified; F17.200 Nicotine dependence, unspecified, uncomplicated; Z98.890 Other specified postprocedural states; Z79.899 Other long term (current) drug therapy
CPT/HCPCS: 36415; 74177; 80053; 80307; 81001; 81025; 83690; 85007; 85025; 96361; 96374; 96375; 99285; G0480; J0780; J2405; J3010; J3490; J7030; Q9967

== ENCOUNTER → 2020-12-24 | Outpatient (CLI) | payer OTHER ==
[~2020-12-24] MED LIST changes: +DICY20TA3 PO; +ONDA4TAB12 PO
[2020-12-24 11:01] LABS: BASO % 0 % (0-3); EOS % 0 % (0-3); HEMATOCRIT 41.1 % (36.0-47.0); HEMOGLOBIN 14.1 g/dL (12.0-15.5); LYMPH # 2.4 x10^3/uL (1.0-4.8); LYMPH % 32 % (24-48); MEAN CORPUSCULAR HEMOGLOBIN 34 pg (25-35); MEAN CORPUSCULAR HGB CONC 34 g/dL (31-37); MEAN CORPUSCULAR VOLUME 99 fL (79-100); MONO # 0.4 x10^3/uL (0.0-1.1); MONO % 6 % (0-9); NEUT # 4.7 x10^3/uL (1.8-7.7); NEUT % 62 % (31-73); PLATELET COUNT 414 x10^3/uL (140-400); RED BLOOD COUNT 4.17 x10^6/uL (3.50-5.40); WHITE BLOOD COUNT 7.7 x10^3/uL (4.0-11.0)
[2020-12-24 11:18] LABS: ALBUMIN 3.9 g/dL (3.4-5.0); ALBUMIN/GLOBULIN RATIO 1.1 (1.0-1.7); CALCIUM 8.9 mg/dL (8.5-10.1); CREATININE 1.1 mg/dL (0.6-1.0); GFR 61.6; POTASSIUM 4.1 mmol/L (3.5-5.1); TOTAL BILIRUBIN 0.4 mg/dL (0.2-1.0); TOTAL PROTEIN 7.6 g/dL (6.4-8.2)
[2020-12-26 14:12] LABS: H PYLORI IGA <9.0 units (0.0-8.9); H PYLORI IGM <9.0 units (0.0-8.9)
== END ==
LOC: LAB 10:34
PROVIDERS: ATTEND Family Medicine
DX: R10.13 Epigastric pain (principal)
CPT/HCPCS: 36415; 80053; 83690; 85025; 86677

== ENCOUNTER → 2021-07-31 | Outpatient (CLI) | payer OTHER ==
[~2021-07-31] MED LIST changes: -DOXY100C2 PO; +DOXY100C3 PO
[2021-07-31 13:06] LABS: HEMOGLOBIN 11.8 g/dL (12.0-15.5); RED BLOOD COUNT 3.44 x10^6/uL (3.50-5.40); RED CELL DISTRIBUTION WIDTH 13.1 % (11.5-14.5); WHITE BLOOD COUNT 9.9 x10^3/uL (4.0-11.0)
--- NOTE | 2021-07-31 16:57 | RAD ---
Clinical indications: Z 34.92 encounter for supervision of normal in the second trimester, unspecified . Findings: A single intrauterine fetus is seen in breech position. heart rate is 150 beats per m inute. BPD is 6.32 cm which equals 25 weeks 4 days. HC is 25.06 cm which equals 27 weeks 1 day. AC is 23.39 cm which equals 27 weeks 5 days. FL is 5.14 cm which equals 27 weeks 3 days. Average gestational age by ultrasound is 27 weeks 0 days +/- 14 days with an EDC of October 30, 2021. Estimated weight is 2 lbs and 6 oz. A four-chamber heart and three-vessel cord are identified. stomach and urinary bladder are identified. kidneys are unremarkable. The right renal pelvis measures 1.7 mm in caliber which is normal. Cord insertion site is unremarkable. The intracranial structures are not well visualized in this study. The spine is morphologically normal in appearance. Cisterna magna measurement is 5 mm. Four extremities are identified. LESLIE using the four quadrant method is 14.4 cm. Cervical length is 3.7 cm. A grade 0 fundal placenta is seen. No placenta previa and no placenta abruptio is identified. The maternal ovaries are not visualized. Impression: Single IUP in breech presentation with gestational age of 27 weeks. The BPD measurement lags behind the other growth parameters but is still within normal range limits o f 14 days. Intracranial structures are not well visualized in this study. Follow-up ultrasound study in 4 weeks is recommended. Electronically signed by: Tommy Goins MD (07/31/2021 4:54 PM) [id number]
== END ==
LOC: US 09:52
PROVIDERS: ATTEND Obstetrics & Gynecology
DX: Z34.92 Encounter for supervision of normal pregnancy, unspecified, second trimester (principal); Z3A.27 27 weeks gestation of pregnancy
CPT/HCPCS: 36415; 76805; 82950; 85027

== ENCOUNTER → 2021-09-02 | Outpatient (CLI) | payer OTHER ==
[~2021-09-02] MED LIST changes: +DICY20TA PO; -DICY20TA3 PO
== END ==
LOC: LAB 10:11
PROVIDERS: ATTEND Obstetrics & Gynecology
DX: O09.73 Supervision of high risk pregnancy due to social problems, third trimester (principal)
CPT/HCPCS: 36415; 82947; 82950

== ENCOUNTER → 2021-09-15 | Outpatient (CLI) | payer OTHER ==
--- NOTE | 2021-09-15 17:32 | RAD ---
EXAM: Ultrasound US OB LIMITED 09/15/2021 8:00 AM INDICATION: Follow-up OB ultrasound. COMPARISON: 07/31/2021 FINDINGS: There is a single living intrauterine gestation in vertex position. heart rate is 131 bpm. Plac enta is anterior. The following anatomy as visualized: Cerebellar, cisterna magna, falx, stomach, kidneys. biometry: Biparietal diameter: 8.12 cm, 32 weeks 4 days Head circumference: 31.19 cm, 34 weeks 6 days Abdominal circumference: 20.73 cm, 32 weeks 5 days Femur length: 6.43 cm, 33 weeks 1 day HC/AC ratio: 1.1 LESLIE: 12.0 cm Estimated gestational age by ultrasound: 33 weeks 2 days. Estimated weight: 2116 g, 55th percen tile. IMPRESSION: 1. Single living intrauterine with gestational age by ultrasound 33 weeks 2 days. Estimated weight 2116 g, 55th percentile. LESLIE 12.0 cm. 2. The intracranial structures are better visualized and grossly normal. Electronically signed by: Kaylene Sarkar MD (09/15/2021 5:29 PM) [id number]
== END ==
LOC: US 08:00
PROVIDERS: ATTEND Obstetrics & Gynecology
DX: O09.73 Supervision of high risk pregnancy due to social problems, third trimester (principal); O00.01 Abdominal pregnancy with intrauterine pregnancy; Z3A.33 33 weeks gestation of pregnancy
CPT/HCPCS: 76815

== ENCOUNTER → 2021-10-01 | Outpatient (CLI) | payer OTHER | LOC: LAB 09:22 | PROVIDERS: ATTEND Internal Medicine Pulmonary Disease | DX: R53.81 Other malaise (principal); R11.2 Nausea with vomiting, unspecified; Z20.822 Contact with and (suspected) exposure to COVID-19 | CPT/HCPCS: U0003; U0005 ==

== ENCOUNTER → 2021-10-20 | Outpatient (CLI) | payer OTHER ==
[2021-10-20 12:35] LABS: HEMATOCRIT 39.4 % (36.0-47.0); HEMOGLOBIN 13.4 g/dL (12.0-15.5); RED BLOOD COUNT 3.94 x10^6/uL (3.50-5.40); RED CELL DISTRIBUTION WIDTH 13.2 % (11.5-14.5); WHITE BLOOD COUNT 7.8 x10^3/uL (4.0-11.0)
[2021-10-20 12:40] LABS: CREATININE,RANDOM URINE 22.3 mg/dL (Not Establ.)
[2021-10-20 12:54] LABS: ALBUMIN 2.9 g/dL (3.4-5.0); ALBUMIN/GLOBULIN RATIO 0.8 (1.0-1.7); CALCIUM 8.3 mg/dL (8.5-10.1); CREATININE 0.6 mg/dL (0.6-1.0); GFR 122.8; POTASSIUM 4.7 mmol/L (3.5-5.1); TOTAL BILIRUBIN 0.2 mg/dL (0.2-1.0); TOTAL PROTEIN 6.7 g/dL (6.4-8.2)
== END ==
LOC: LAB 11:46
PROVIDERS: ATTEND Obstetrics & Gynecology
DX: Z34.93 Encounter for supervision of normal pregnancy, unspecified, third trimester (principal)
CPT/HCPCS: 36415; 80053; 82570; 83615; 84156; 85027; 87086

== ENCOUNTER 2021-11-03 05:46 | Inpatient (IN) | payer OTHER ==
[2021-11-03] VITALS (10 sets, daily range): BP systolic 109–146; BP diastolic 55–86
[~2021-11-03] VITALS: Ht 177.8 cm; Wt 131.0 kg
[2021-11-03] MEDS ORDERED: BUTORPHANOL 2 MG/ML VIAL. IVP PRN ×2 (06:00)
[2021-11-03] MEDS ORDERED: LIDOCAINE 1% PF 30 ML VIAL. INJ PRN (06:00)
[2021-11-03] MEDS ORDERED: TERBUTALINE 1 MG/ML VIAL. SQ PRN (06:00)
[2021-11-03] MEDS ORDERED: ACETAMINOPHEN 325 MG TABLET. PO PRN ×2 (06:00→16:30)
[2021-11-03] MEDS ORDERED: OXYTOCIN 30 UNIT/500 ML PREMIX 500 ML IV PRN ×3 (06:00→16:30)
[2021-11-03] MEDS ORDERED: PENICILLIN G K 5,000,000 UNIT in IV DEXTROSE 5% 100ML 100 ML IV ONE (06:00)
[2021-11-03] MEDS ORDERED: 0.9 % SODIUM CHLORIDE 10 ML DISP.SYRIN. IV PRN ×2 (06:00→16:30)
[2021-11-03] MEDS: IV RINGERS,LACTATED 1000ML 1,000 ML IV SCH ×3 (06:29→14:25)
[2021-11-03 06:42] LABS: BASO % 0 % (0-3); EOS % 0 % (0-3); HEMATOCRIT 40.3 % (36.0-47.0); HEMOGLOBIN 13.5 g/dL (12.0-15.5); LYMPH # 1.6 x10^3/uL (1.0-4.8); LYMPH % 15 % (24-48); MEAN CORPUSCULAR HEMOGLOBIN 34 pg (25-35); MEAN CORPUSCULAR HGB CONC 34 g/dL (31-37); MEAN CORPUSCULAR VOLUME 101 fL (79-100); MONO # 0.7 x10^3/uL (0.0-1.1); MONO % 6 % (0-9); NEUT # 8.7 x10^3/uL (1.8-7.7); NEUT % 78 % (31-73); PLATELET COUNT 379 x10^3/uL (140-400); RED BLOOD COUNT 4.02 x10^6/uL (3.50-5.40); RED CELL DISTRIBUTION WIDTH 13.5 % (11.5-14.5); WHITE BLOOD COUNT 11.1 x10^3/uL (4.0-11.0)
[2021-11-03 07:13] LABS: BILIRUBIN,URINE NEGATIVE (NEG); CLARITY,URINE CLEAR; COLOR,URINE YELLOW; NITRITE,URINE NEGATIVE (NEG); PROTEIN,URINE NEGATIVE (NEG-TRACE)
[2021-11-03 07:20] LABS: BACTERIA,URINE MODERATE /HPF (0-FEW); RBC,URINE OCC /HPF (0-2)
--- NOTE | 2021-11-03 08:17 | PDOC1 ---
TELEPHONE STATION INSTALLER H&P Date of Admission: Date of Admission: Nov 03, 2021 at 05:46 History of Present Illness: EDC: 11/08/21 LMP: 02/10/21 26y @ 39.2 by 9wk u/s presents for indxn of labor. The pts has been relatively uncomplicated. She has been on Zoloft and Wellbutrin throughout the . PMH: Depression/Anxiety, GERD, Headache-chronic PSH: wisdom teeth extraction, laparoscopic cholecystectomy 11/20/19 Meds: PNV, Zoloft, Wellbutrin, Omeprazole All: NKDA OBHx: TSVD x 1 SH: no tob, no EtOH FH: Migraines Medications: Meds: Current Medications Medications (Trade) Dose Ordered Sig/Lakshmi Route PRN Reason Start Time Stop Time Status Last Admin Dose Admin Ringer's Solution 1,000 ml @ 125 mls/hr Q8H IV 11/03/21 06:00 11/03/21 06:29 Penicillin G Potassium [id number] unit/Dextrose 100 ml @ 100 mls/hr 1X ONCE IV 11/03/21 06:00 11/03/21 06:59 DC 11/03/21 06:29 Allergies: Coded Allergies: No Known Drug Allergies (Unverified , 11/20/19) Physical Exam: Vital Signs: Vital Signs Date Time Temp Pulse Resp B/P (MAP) Pulse Ox O2 Delivery O2 Flow Rate FiO2 11/03/21 06:17 98.4 119 20 146/86 (106) 97 Room Air 98.4 PE: GENERAL: No apparent distress. Alert and oriented. HEENT: Head normocephalic, atraumatic. NECK: Supple LUNGS: Clear to auscultation. HEART: RRR, S1, S2 present, pulses intact ABDOMEN: Soft, positive bowel sounds. EXTREMITIES: No cyanosis or edema. NEUROLOGIC: Normal speech, normal tone PSYCHIATRIC: Normal affect, normal mood. SKIN: No ulceration. FHT: 120s +acels/no decels/mLTV [place]: 5-8 min SVE: 1-2/75/-3 Labs: Laboratory Tests Test 11/03/21 06:00 11/03/21 06:15 Urine Collection Type Unknown Urine Color Yellow Urine Clarity Clear Urine pH 7.0 (<5.0-8.0) Urine Specific [place] 1.015 (1.000-1.030) Urine Protein Negative mg/dL (NEG-TRACE) Urine Glucose (UA) Negative mg/dL (NEG) Urine Ketones (Stick) Negative mg/dL (NEG) Urine Blood Negative (NEG) Urine Nitrite Negative (NEG) Urine Bilirubin Negative (NEG) Urine Urobilinogen Dipstick 1.0 mg/dL (0.2 mg/dL) Urine Leukocyte Esterase Moderate (NEG) Urine RBC Occ /HPF (0-2) Urine WBC 11-20 /HPF (0-4) Urine Squamous Epithelial Cells Mod /LPF Urine Bacteria Moderate /HPF (0-FEW) Urine Mucus Slight /LPF White Blood Count 11.1 x10^3/uL (4.0-11.0) H Red Blood Count 4.02 x10^6/uL (3.50-5.40) Hemoglobin 13.5 g/dL (12.0-15.5) Hematocrit 40.3 % (36.0-47.0) Mean Corpuscular Volume 101 fL (79-100) H Mean Corpuscular Hemoglobin 34 pg (25-35) Mean Corpuscular Hemoglobin Concent 34 g/dL (31-37) Red Cell Distribution Width 13.5 % (11.5-14.5) Platelet Count 379 x10^3/uL (140-400) Neutrophils (%) (Auto) 78 % (31-73) H Lymphocytes (%) (Auto) 15 % (24-48) L Monocytes (%) (Auto) 6 % (0-9) Eosinophils (%) (Auto) 0 % (0-3) Basophils (%) (Auto) 0 % (0-3) Neutrophils # (Auto) 8.7 x10^3/uL (1.8-7.7) H Lymphocytes # (Auto) 1.6 x10^3/uL (1.0-4.8) Monocytes # (Auto) 0.7 x10^3/uL (0.0-1.1) Eosinophils # (Auto) 0.0 x10^3/uL (0.0-0.7) Basophils # (Auto) 0.0 x10^3/uL (0.0-0.2) Laboratory Tests 11/03/21 06:15 Laboratory Tests 11/03/21 06:15 Assessment & Plan: A/P 26y @ 39.2 by 9wk u/s 1.) PRIME 2.) Indxn on Pit 3.) GHTN - PIH labs nml, Pr/Cr 0.283, no s/s of preeclampsia 4.) TOB - [place] 5.) Depression/Anxiety - on Zoloft/Wellbutrin 6.) Elevated GTT - 1 of 4 values of 3hr GTT elevated 7.) TDAP given 08/28/21 8.) Fetus cat I FHT 9.) GBSuria on PCN 10.) Girl - Megan ALEC Payton MD Nov 03, 2021 08:17
[2021-11-03 08:41] LABS: CREATININE,RANDOM URINE 122.2 mg/dL (Not Establ.)
[2021-11-03 08:48] LABS: ALBUMIN/GLOBULIN RATIO 0.8 (1.0-1.7); CALCIUM 9.1 mg/dL (8.5-10.1); CREATININE 0.7 mg/dL (0.6-1.0); GFR 102.8; POTASSIUM 4.5 mmol/L (3.5-5.1); TOTAL BILIRUBIN 0.3 mg/dL (0.2-1.0); TOTAL PROTEIN 6.9 g/dL (6.4-8.2)
[2021-11-03] MEDS ORDERED: ONDANSETRON PF 4 MG/2 ML VIAL. IVP PRN (09:00)
[2021-11-03] MEDS: PENICILLIN G K 2,500,000 UNIT in IV DEXTROSE 5% 50 ML IV SCH ×2 (10:38→14:25)
[2021-11-03] MEDS ORDERED: fentaNYL PF VIAL 100 MCG/2 ML VIAL ONE (13:45)
[2021-11-03] MEDS ORDERED: BUPIVACAINE MPF 0.25% 30 ML VIAL. ONE (13:46)
[2021-11-03] MEDS ORDERED: L&D EPIDURAL SYRINGE 50 ML ONE (13:46)
[2021-11-03] MEDS ORDERED: L&D EPIDURAL 50 ML SYRINGE. ONE (14:00)
--- NOTE | 2021-11-03 16:19 | PDOC1 ---
[employer] TEACHER Delivery Summary: [employer] Delivery Summary: Called to attend delivery due to meconium stained fluid. GBS +, other labs WNL. Infant is a 39 2/7 week vaginal delivery after ROM x 4 hours. Infant delivered vaginally and received 45 seconds of delayed cord clamping. She was bulb suctioned on the perineum and then placed on the mother's abdomen. She had a good cry and good tone. She was dried and stimulated. She pinked up quickly without supplemental oxygen. Apgars 8/9. GENERAL: No apparent distress. Alert and oriented. HEENT: Head normocephalic, atraumatic. NECK: Supple LUNGS: Clear to auscultation. HEART: RRR, S1, S2 present, pulses intact ABDOMEN: Soft, positive bowel sounds. EXTREMITIES: Acrocyanosis. NEUROLOGIC: Normal tone for gestational age.. SKIN: No ulceration. EDIL La ELIZABETH A NP Nov 03, 2021 16:19
[2021-11-03] MEDS ORDERED: MAG HYDROX/ALUMINUM HYD/SIMETH 30 ML ORAL.SUSP PO PRN (16:30)
[2021-11-03] MEDS ORDERED: MMR per PROTOCOL. MC PRN (16:30)
[2021-11-03] MEDS ORDERED: ZOLPIDEM 5 MG TABLET. PO PRN (16:30)
[2021-11-03] MEDS ORDERED: SIMETHICONE 80 MG TAB.CHEW PO PRN (16:30)
[2021-11-03] MEDS ORDERED: MAGNESIUM HYDROXIDE 2,400 MG/30 ML ORAL.SUSP. PO PRN (16:30)
[2021-11-03] MEDS ORDERED: HYDROCORTISONE 1% TOPICAL OINTMENT 30GM TUBE. TP PRN (16:30)
[2021-11-03] MEDS ORDERED: PHENYLEPH/MINERAL OIL/PETROLAT RECTAL OINTMENT TUBE. RC PRN (16:30)
[2021-11-03] MEDS ORDERED: diphenhydrAMINE HCL 25 MG CAPSULE PO PRN (16:30)
[2021-11-03] MEDS ORDERED: TDaP (BOOSTRIX) per PROTOCOL. MC PRN (16:30)
[2021-11-03] MEDS ORDERED: BENZOCAINE 20% TOPICAL AEROSOL SPRAY 57GM CAN. TP PRN (16:30)
--- NOTE | 2021-11-03 16:32 | PDOC4 ---
VAGINAL DELIVERY DATE DATE: 11/03/21 TIME: 16:31 TIME Patient delivered a viable female over intact perineum at 1602. Wt 7 lb 15 oz. Apgars 8/9. Placenta delivered spontaneously, intact with 3VC. No lacerations noted. Good hemostasis noted. 20 U of Pit given with IVF. EBL 300 cc. WEIGHT Weight [ ] ALEC NG MD Nov 03, 2021 16:32
[2021-11-03] MEDS: DOCUSATE SODIUM 100 MG CAPSULE. PO PRN (18:35)
[2021-11-03] MEDS: IBUPROFEN 400 MG TABLET. PO PRN (18:35)
[2021-11-03] MEDS: SERTRALINE 50 MG TABLET. PO SCH (19:23)
[2021-11-03] MEDS: buPROPion XL 150 MG TAB.ER.24H. PO SCH (19:24)
[2021-11-04] MEDS: oxyCODONE/APAP 5/325 1 TAB TABLET PO PRN ×4 (00:28→22:03)
[2021-11-04 00:45] VITALS: BP 118/61
[2021-11-04] MEDS: IBUPROFEN 400 MG TABLET. PO PRN ×3 (04:48→21:53)
[2021-11-04 04:56] LABS: HEMATOCRIT 34.1 % (36.0-47.0); HEMOGLOBIN 11.7 g/dL (12.0-15.5); RED BLOOD COUNT 3.39 x10^6/uL (3.50-5.40); RED CELL DISTRIBUTION WIDTH 13.5 % (11.5-14.5); WHITE BLOOD COUNT 10.8 x10^3/uL (4.0-11.0)
[2021-11-04 05:23] VITALS: BP 127/61
[2021-11-04] MEDS ORDERED: FERROUS SULFATE 325 MG TABLET. PO SCH (08:00)
[2021-11-04] MEDS: DOCUSATE SODIUM 100 MG CAPSULE. PO PRN ×2 (08:21→17:20)
[2021-11-04 08:23] VITALS: BP 127/77
[2021-11-04] MEDS ORDERED: PRENATAL MULTIVITAMIN TABLET. PO SCH (09:00)
--- NOTE | 2021-11-04 09:45 | PDOC ---
RETAIL SHIFT MANAGER PROGRESS NOTE Date of Service: DATE: 11/04/21 TIME: 09:44 Subjective: Pt with good pain control. Kaila PO. Voiding. Minimal lochia. Objective: Vital Signs: Vital Signs Date Time Temp Pulse Resp B/P (MAP) Pulse Ox O2 Delivery O2 Flow Rate FiO2 11/03/21 18:49 120 127/65 (85) 97 11/03/21 19:14 98.9 20 98.9 11/04/21 00:28 Room Air Vital Signs Date Time Temp Pulse Resp B/P (MAP) Pulse Ox O2 Delivery O2 Flow Rate FiO2 11/04/21 07:55 Room Air 11/04/21 05:23 98.9 98 18 127/61 (83) 98.9 11/04/21 00:45 97 Labs: Laboratory Tests Test 11/04/21 03:50 White Blood Count 10.8 x10^3/uL (4.0-11.0) Red Blood Count 3.39 x10^6/uL (3.50-5.40) L Hemoglobin 11.7 g/dL (12.0-15.5) L Hematocrit 34.1 % (36.0-47.0) L Mean Corpuscular Volume 101 fL (79-100) H Mean Corpuscular Hemoglobin 34 pg (25-35) Mean Corpuscular Hemoglobin Concent 34 g/dL (31-37) Red Cell Distribution Width 13.5 % (11.5-14.5) Platelet Count 307 x10^3/uL (140-400) Laboratory Tests 11/04/21 03:50 Laboratory Tests 11/04/21 03:50 Physical Exam: GENERAL: No apparent distress. Alert and oriented. HEENT: Head normocephalic, atraumatic. NECK: Supple LUNGS: Clear to auscultation. HEART: RRR, S1, S2 present, pulses intact ABDOMEN: Soft, positive bowel sounds. EXTREMITIES: No cyanosis or edema. NEUROLOGIC: Normal speech, normal tone PSYCHIATRIC: Normal affect, normal mood. SKIN: No ulceration. FFNT below umb No C/C/E Assessment & Plan: A/P 26y PPD #1 s/p 1.) PRIME 2.) PP doing well 3.) GHTN - PIH labs nml, Pr/Cr 0.159, no s/s of preeclampsia 4.) Hgb 13.5 -> 11.7 5.) Depression/Anxiety - on Zoloft/Wellbutrin 6.) TDAP given 08/28/21 7.) Girl - Megan Valdezelyn 8.) Cont PP care ALEC NG MD Nov 04, 2021 09:45
[2021-11-04 16:29] VITALS: BP 136/76
[2021-11-04] MEDS: SERTRALINE 50 MG TABLET. PO SCH (19:54)
[2021-11-04] MEDS: buPROPion XL 150 MG TAB.ER.24H. PO SCH (19:54)
[2021-11-04 21:58] VITALS: BP 137/82
[2021-11-05 05:00] VITALS: BP 135/70
[2021-11-05] MEDS ORDERED: MEASLES, MUMPS & RUBELLA VACC 0.5 ML VIAL. VAX SQ ONE (07:45)
[2021-11-05] MEDS ORDERED: DOCU-109 PO (08:37)
[2021-11-05] MEDS ORDERED: IBUP-1060 PO (08:37)
[2021-11-05 08:50] VITALS: BP 139/78
--- NOTE | 2021-11-06 09:10 | PATHOLOGY ---
[facility] Accession Number: [id number] . 01 Material submitted: . placenta - CORD AND PLACENTA . 01 Clinical history: . INTRAUTERINE SINGLE GESTATION , ANXIETY, DEPRESSION, PIH, MECONIUM . 02 Diagnosis: 535 gram term placenta of an estimated 39 weeks 2 days gestation with attached membranes and umbilical cord: - Placental weight at approximate 60-65th percentile for estimated gestational age. - Marginal furcate insertion of umbilical cord. - Meconium staining of placental membranes. - Recent and early organizing marginal hematoma. - Focal basal increased intervillous fibrin deposition and hemorrhage with focal villous entrapment and ischemic necrosis and degeneration. - Focal subchorionic recent hemorrhage and fibrin deposition. . (JPM:mmmaryuri; 11/05/2021) [facility] 11/05/2021 1529 Local . 02 Comment: There is no evidence of an acute chorioamnionitis. . (JPM:mml; 11/05/2021) . 02 Electronically signed: . Jovanny Ortiz MD, Pathologist NPI- [id number] . 01 Gross description: . Fixative: Formalin Labeled: placenta Specimen received: An intact craft placenta Trimmed placental weight: 535 g Umbilical cord dimensions: 19.5 cm in length by 1.0 cm-1.5 cm in diameter Umbilical cord insertion: Marginal, 1.4 cm from the nearest placental edge and displays 2.5 cm of furcate insertion Number of umbilical vessels: 3 Umbilical cord appearance: Pretty, dusky and unremarkable Placenta dimensions: 16.0 x 15.6 x 3.6 cm surface: Blue-green and dusky with the usual arborizing vasculature Maternal surface: Red-brown, lobular and intact with focal areas of adherent blood clot (2.4 x 1.5 cm to 2.9 x 2.0 cm) that involves approximately 30% of the maternal surface Cut surfaces: Maroon and spongy Abnormalities: A pale yellow lesion (2.8 x 1.5 x 0.6 cm) is identified as well as a focal, marginal area of hemorrhage (2.0 x 1.3 x 0.3 cm) that abuts the surface. membranes: [place]arland-brown, dusky and translucent with adherent blood clot Also received in the same container is an aggregate of blood clot (11.5 x 9.0 x 2.8 cm). Photographs are taken. . [employer] Extension Worker sections are submitted as follows: A1: Umbilical cord, represented A2: membranes, represented A3-A4: Sections to show adherent blood clot, represented A5: Maternal surface sections to show infarction, represented A6: Full-thickness section to show area of hemorrhage, represented ([place]; 11/04/2021) DKA/DKA 11/05/2021 1522 Local . 02 Pathologist provided ICD-10: O43.893, O77.0, Z37.0, Z3A.39 . 02 CPT . 612610 Specimen Comment: A courtesy copy of this report has been sent to [phone], [phone] Specimen Comment: [id number] Specimen Comment: Report sent to / DR DANG Performed at: 01 [facility] [address], [place] [id number] MD Gavin Padilla MD Phone: [phone] Performed at: 02 [facility] [address] [place], [place] [id number] MD Jovanny Ortiz MD Phone: [phone]
== END 2021-11-05 10:50 | disposition home or self-care (01) | DRG 807 ==
LOC: 3 SO LND 05:46
PROVIDERS: ADMIT Obstetrics & Gynecology; ATTEND Obstetrics & Gynecology
PROC: 10E0XZZ Delivery of Products of Conception, External Approach (ICD-10-PCS; principal; 2021-11-03)
DX: O99.824 Streptococcus B carrier state complicating childbirth (principal); Z37.0 Single live birth; O77.0 Labor and delivery complicated by meconium in amniotic fluid; Z3A.39 39 weeks gestation of pregnancy; Z90.49 Acquired absence of other specified parts of digestive tract; F32.A Depression, unspecified; F41.9 Anxiety disorder, unspecified; K21.9 Gastro-esophageal reflux disease without esophagitis; R51.9 Headache, unspecified; O99.344 Other mental disorders complicating childbirth; F41.8 Other specified anxiety disorders; O99.62 Diseases of the digestive system complicating childbirth
CPT/HCPCS: 36415; 80053; 81001; 82570; 84156; 85025; 85027; 86592; 86850; 86900; 86901; 87086; 88307; J2405; J2540; J2590; J3010; J7060; J7120; G0378